=== PATIENT | male | born 2005 | race African-American/Black ===

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

== ENCOUNTER 2024-01-29 07:51 | Emergency (ER) | payer OTHER, SELFPAY ==
--- NOTE | ~2024-01-29 | XR_ITS ---
Clinical Indication: Cough PA and lateral views of the chest: Comparison: None Findings: The lungs are clear, without evidence of focal consolidation or pleural effusion. Cardiome diastinal silhouette is within normal limits. Bones and soft tissues are unremarkable. Impression: Normal chest. Reviewed, dictated and finalized at location . IT COMPLIANCE OFFICER Impression: Normal chest.
[2024-01-29 07:56] VITALS: BP 157/105; PULSE 69; RESP 18; TEMP 37.7; O2SAT 100
--- NOTE | 2024-01-29 08:24 | ED.GENADULT ---
HPI - General Adult General Chief complaint: Upper Respiratory Infection Stated complaint: Headache, fever, body aches Time Seen by Provider: 01/29/24 07:55 History of Present Illness HPI narrative: 18-year-old male presenting to the emergency department for evaluation of cough fever sore throat and body aches. Patient states symptoms have been ongoing for approximately the last 2 weeks. Patient did have follow-up with an urgent care yesterday and was started on what he believes is amoxicillin. Patient states that he took a dose yesterday and when he woke up today he was still having symptoms. Patient states that nothing has worsened since yesterday because nothing and improved he wanted to be re-evaluated. At time of evaluation patient is resting comfortably. Related Data Allergies Allergy/AdvReac Type Severity Reaction Status Date / Time No Known Allergies Allergy Verified 02/20/21 13:19 Review of Systems Review of Systems: All systems reviewed & are unremarkable except as noted in HPI and below PMFSH Past Medical History Medical History (Updated 01/29/24 @ 08:53 by Johnnie Campos MD) No active medical problems Surgical History Surgical History (Updated 01/25/22 @ 14:05 by Madalyn Perkins PA-C) No pertinent past surgical history Social History Social History (Updated 01/25/22 @ 14:06 by Madalyn Perkins PA-C) Substance use type: marijuana Exam Narrative: APPEARANCE: Well appearing, no pain, no distress, well-nourished. HEAD: normocephalic, atraumatic. EYES: PERRLA/EOMI, conjunctivae clear. NOSE: Normal no drainage NECK: Supple. No adenopathy, no masses. RESPIRATORY: Airway patent, respirations nonlabored. Clear to auscultation bilaterally, no rales, rhonchi, wheezing. CARDIOVASCULAR: Regular rate and rhythm without murmurs rubs or gallops. ABDOMINAL: Soft, nontender, nondistended, normal bowel sounds MUSCULOSKELETAL: Moves all extremities. Strength/ROM intact, No edema, No calf tenderness. NEURO: Alert. Cranial nerves II through XII intact. Grossly intact SKIN: Warm, dry. Normal Color Course Course Emergency Course: Patient was diagnosed with influenza and was encouraged close follow-up with primary care physician Vital Signs Vital signs: Vital Signs Temperature 99.8 F H 01/29/24 07:56 Pulse Rate 69 01/29/24 07:56 Respiratory Rate 18 01/29/24 07:56 Blood Pressure 157/105 H 01/29/24 07:56 Pulse Oximetry 100 01/29/24 07:56 Oxygen Delivery Room Air 01/29/24 07:56 Temperature 99.8 F H 01/29/24 07:56 Pulse Rate 83 01/29/24 08:58 Respiratory Rate 16 01/29/24 08:58 Blood Pressure 140/84 01/29/24 08:58 Pulse Oximetry 100 01/29/24 08:58 Oxygen Delivery Room Air 01/29/24 08:03 Medical Decision Making MDM Narrative Medical decision making narrative: 18-year-old male presented to the emergency department for evaluation persistent cough body aches and fatigue after being started on antibiotics yesterday. Patient did test positive for influenza B. Patient was encouraged close follow-up with his primary care physician. Differential Diagnosis Differential Diagnosis: Pneumonia, influenza, RSV, COVID Vital Signs Vital Signs: Vital Signs Temperature 99.8 F H 01/29/24 07:56 Pulse Rate 69 01/29/24 07:56 Respiratory Rate 18 01/29/24 07:56 Blood Pressure 157/105 H 01/29/24 07:56 Pulse Oximetry 100 01/29/24 07:56 Oxygen Delivery Room Air 01/29/24 07:56 Temperature 99.8 F H 01/29/24 07:56 Pulse Rate 83 01/29/24 08:58 Respiratory Rate 16 01/29/24 08:58 Blood Pressure 140/84 01/29/24 08:58 Pulse Oximetry 100 01/29/24 08:58 Oxygen Delivery Room Air 01/29/24 08:03 Lab Data Lab results reviewed: Yes I reviewed the patient's lab results. Labs: Lab Results 01/29/24 Range/Units 08:08 Influenza A (RT-PCR) Negative (Negative) Influenza B (RT-PCR) Positive A (Negative) RSV (RT-PCR)
[2024-01-29 08:39] LABS: Strep Group A RT-PCR NOT DETECTED (Negative)
[2024-01-29 08:50] LABS: Influenza A QL RT-PCR Negative (Negative); Influenza B QL RT-PCR Positive (Negative); RSV RNA, RT-PCR Negative (Negative); SARS-CoV-2 RNA PCR Negative (Negative)
[2024-01-29 08:58] VITALS: BP 140/84; PULSE 83; RESP 16; O2SAT 100
== END 2024-01-29 08:59 | disposition home or self-care (01) ==
PROVIDERS: Emergency Provider Emergency Medicine; PCP Pediatrics
DX: J10.1 Influenza due to other identified influenza virus with other respiratory manifestations (principal); Z20.822 Contact with and (suspected) exposure to COVID-19
CPT/HCPCS: 71046; 87637; 87651; 99283

== ENCOUNTER 2024-05-19 22:49 | Emergency (ER) | payer SELFPAY ==
[2024-05-19 22:51] VITALS: BP 136/63; PULSE 66; RESP 16; TEMP 36.6; O2SAT 98
--- NOTE | 2024-05-19 23:21 | PC.NURSE ---
pt to intake desk. Pt verbalized that he was going to leave as he did not want to wait any longer.
== END 2024-05-19 23:50 | disposition left against medical advice (07) ==
LOC: ANHED 23:31
PROVIDERS: PCP Pediatrics
DX: L29.0 Pruritus ani (principal)
CPT/HCPCS: 99199

== ENCOUNTER 2024-05-20 21:43 | Emergency (ER) | payer SELFPAY ==
[2024-05-20 22:04] VITALS: BP 131/70; PULSE 53; RESP 18; TEMP 36.6; O2SAT 99
[2024-05-21 00:40] VITALS: BP 134/87; PULSE 87; RESP 12; O2SAT 100
--- NOTE | 2024-05-21 00:40 | ED.GENADULT ---
HPI - General Adult General Chief complaint: Unspecified Stated complaint: Hemrrhoids? Time Seen by Provider: 05/21/24 00:13 History of Present Illness HPI narrative: 19-year-old male presents to the emergency department with concerns for hemorrhoid. Patient states he has been having rectal pain for the past few days that is worse when he has a bowel movement. He endorses some constipation. Last bowel movement was yesterday and normal. He denies abdominal pain, rectal bleeding, fever, nausea or vomiting. Related Data Allergies Allergy/AdvReac Type Severity Reaction Status Date / Time No Known Allergies Allergy Verified 05/20/24 22:06 Review of Systems Review of Systems: CONSTITUTIONAL: Denies fever, chills, or sweats. EYES: Denies visual changes, redness, or discharge. ENT: Denies rhinorrhea, congestion, sore throat, or otalgia. CARDIOVASCULAR: Denies chest pain, palpitations, or edema. RESPIRATORY: Denies cough or dyspnea. GASTROINTESTINAL: See HPI GENITOURINARY: Denies dysuria or hematuria. SKIN: Denies rash or itching. MUSCULOSKELETAL: Denies back pain, joint pain, or myalgia. NEUROLOGIC: Denies headache, numbness, or weakness. PSYCHIATRIC: Denies anxiety or depression. PMFSH Past Medical History Medical History No active medical problems Surgical History Surgical History No pertinent past surgical history Social History Social History Substance use type: marijuana Exam Narrative: GENERAL: Well-appearing, well-nourished, and in no acute distress. HEAD: Normocephalic, atraumatic. NECK: Supple. ABDOMEN: Soft, nontender, nondistended, normal active bowel sounds. no rebound, guarding or rigidity. Rectal exam with a prolapsed internal hemorrhoid that is not thrombosed. It is easily reduced. No hematochezia or melena. EXTREMITIES: Normal range of motion. No edema. SKIN: Warm, dry, no rash. NEURO: No focal deficits. Alert and oriented x3 Course Vital Signs Vital signs: Vital Signs Temperature 97.8 F 05/20/24 22:04 Pulse Rate 53 L 05/20/24 22:04 Respiratory Rate 18 05/20/24 22:04 Blood Pressure 131/70 05/20/24 22:04 Pulse Oximetry 99 05/20/24 22:04 Oxygen Delivery Room Air 05/20/24 22:04 Temperature 97.8 F 05/20/24 22:04 Pulse Rate 53 L 05/20/24 22:04 Respiratory Rate 18 05/20/24 22:04 Blood Pressure 131/70 05/20/24 22:04 Pulse Oximetry 99 05/20/24 22:04 Oxygen Delivery Room Air 05/20/24 22:04 Medical Decision Making MDM Narrative Medical decision making narrative: 19-year-old male presents to emergency department with concerns for hemorrhoid and rectal pain. Vitals stable. Exam is significant for prolapsed internal hemorrhoid that is not thrombosed and easily reduced on exam. No abdominal pain, no fever, no melena or hematochezia. I discussed Sitz baths, high-fiber diet. Will prescribe stool softener and suppositories. Will also provide general surgery follow-up. Strict ED return precautions discussed. He is agreeable with the plan verbalized understanding. Discharged in stable condition. Vital Signs Vital Signs: Vital Signs Temperature 97.8 F 05/20/24 22:04 Pulse Rate 53 L 05/20/24 22:04 Respiratory Rate 18 05/20/24 22:04 Blood Pressure 131/70 05/20/24 22:04 Pulse Oximetry 99 05/20/24 22:04 Oxygen Delivery Room Air 05/20/24 22:04 Temperature 97.8 F 05/20/24 22:04 Pulse Rate 53 L 05/20/24 22:04 Respiratory Rate 18 05/20/24 22:04 Blood Pressure 131/70 05/20/24 22:04 Pulse Oximetry 99 05/20/24 22:04 Oxygen Delivery Room Air 05/20/24 22:04 Discharge Plan Discharge Clinical Impression: Internal hemorrhoid Patient Disposition: Home, Self-Care Condition: Stable Instructions: Antibiotic Form, Hemo
== END 2024-05-21 00:58 | disposition home or self-care (01) ==
PROVIDERS: Emergency Provider Physician Assistant; PCP Pediatrics
DX: K64.8 Other hemorrhoids (principal)
CPT/HCPCS: 99283